=== PATIENT | female | born 1960 | race Caucasian/White ===

== ENCOUNTER 2016-05-11 14:26 | Emergency (ER) | payer MEDICAID, OTHER ==
[2016-05-11 14:37] VITALS: TEMP 98.8
--- NOTE | 2016-05-11 14:43 | UCPHY ---
H & P Patient Type: New Chief Complaint Nursing Narrative: cough, congestion, body aches and shortness of breath for 4 days, felt feverish. denies documented fevers. HPI/ROS: HPI CHIEF COMPLAINT: Cough, congestion, shortness of breath, hypertension HISTORY OF PRESENT ILLNESS: This patient very pleasant 55-year-old female significant past medical history for newly diagnosed hypertension in December she takes lisinopril 20 mg daily however she has not taken her lisinopril in 3 days. She presents to urgent care with 4-5 days of worsening shortness of breath cough, with productive sputum she describes sputum is dark brown, no blood. States she does feel short of breath has wheezing, worsening shortness of breath and cough. Chills, muscle aches, joint pain. Nausea. She thinks she is dehydrated. She denies chest pain. Currently upon arrival here in emergency room is noted that she is hypertensive. She tells me she takes lisinopril 20 mg daily but has not done so in the past 3 days. 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 She also tells me that she has had a newly diagnosed hep C. 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 Past Medical History: Hypertension as of December, hep C Past Surgical History: Denies recent surgical history Social History: denies daily use of drugs alcohol tobacco products Family History: Noncontributory ROS REVIEW OF SYSTEMS: A comprehensive 10 point review of systems is otherwise negative aside from elements mentioned in the history of present illness. Exam Constitutional appears nontoxic triage nursing summary reviewed, vital signs reviewed, awake/alert. (Vital signs HTN) Eyes normal conjunctivae and sclera, EOMI, PERRLA. HENT normal inspection, atraumatic, moist mucus membranes, no epistaxis, neck supple/ no meningismus, no raccoon eyes. Respiratory faint wheezing bilaterally, decreased breath sounds bilaterally, bronchitic sounding cough Cardiovascular rate normal, regular rhythm, no murmur, no edema, distal pulses normal. Gastrointestinal soft, non-tender, no rebound, no guarding, normal bowel sounds, no distension, no pulsatile mass. Genitourinary no CVA tenderness. Musculoskeletal no midline vertebral tenderness, full range of motion, no calf swelling, no tenderness of extremities, no meningismus, good pulses, neurovascularly intact. Skin pink, warm, & dry, no rash, skin atraumatic. Neurologic awake, alert and oriented x 3, AAOx3, moves all 4 extremities equally, motor intact, sensory intact, CN II-XII intact, normal cerebellar, normal vision, normal speech. Psychiatric normal mood/affect. Heme/Lymph/Immune no lymphadenopathy. Differential Diagnosis: Includes but is not limited to in a particular order upper respiratory tract solnao, viral pneumonia, bacterial pneumonia, bronchitis, ACS, CHF, pulmonary embolism Medical Decision Making: Plan for this patient IV establishment full engine monitor due to significant hypertension patient had an EKG, troponin, patient be given a DuoNeb breathing treatment check for influenza. IV hydration. P.o. lisinopril 20 mg given she has not taken in 3 days. Re-evaluation: EKG interpretation by me on record in [employer] system. Impression time of EKG 1456, this is sinus rhythm rate of 71 no acute ischemic changes. Q-waves seen in V1 V2 V3, was not acute ischemic changes. No old EKG to compare this to. 1618: ED x-ray: Chest two view this shows right upper lobe pneumonia. Image interpreted by myself. 1619; re-evaluation at this time this patient is resting comfortably no acute distress. No hypoxia. No tachycardia. No fever. White cell count is normal. Blood cultures been pulled, lactic acid less than 2. Patient received IV Rocephin here in emergency room IV azithromycin. 2nd L IV fluid bolus, 1 mg IV Ativan for anxiety. 1709: Re-evaluation at this time patient is resting comfortably no acute distress. No hypoxia no fever. Normal leukocytosis, lactic acid not elevated, blood pressure greatly improved with anxiety medicine and rest. She received fluids here IV antibiotics Rocephin and azithromycin. Patient be discharged with Levaquin. Blood cultures have been pulled. Prescription given for Levaquin, guaifenesin, prednisone, albuterol inhaler. She understands drink lots of fluids stay well-hydrated return to the urgent care or emergency room if she develops worsening symptoms she is comfortable this plan and plan for discharge. It Is noted discharge no hypoxia no fever, feels much better. Source: Patient - Medical/Surgical History Other PMH: htn, appy, tonsilectomy, hep C - Family History Significant Family History: No pertinent family hx - Social History Smoking Status: Former smoker Constitutional: Initial Vital Signs Temperature (C) 37.1 C 04/02/17 14:34 Heart Rate 85 05/11/16 14:34 Respiratory Rate 20 05/11/16 14:34 Blood Pressure 219/130 H 05/11/16 14:34 O2 Sat (%) 94 05/11/16 14:34 O2 Delivery Mode Room Air Allergies/Adverse Reactions: Penicillins Allergy (Verified 05/11/16 14:33) Home Medications: Medication Instructions Recorded Albuterol [Proventil Inhaler HFA 1 - 2 puffs IH Q4H #1 mdi 05/11/16 (*)] Guaifenesin [Guaifenesin ER] 600 mg PO BID #14 tab.er.12h 05/11/16 Lisinopril 05/11/16 levOFLOXACIN [Levaquin] 500 mg PO DAILY #7 tablet 05/11/16 levOFLOXACIN [levAQUIN (*)] 500 mg PO BID #14 tab 05/11/16 predniSONE 60 mg PO DAILY #15 tab 05/11/16 traZODone 05/11/16 Medical Decision Making - Data Points Laboratory Results: Laboratory Results 05/11/16 14:50 05/11/16 14:50 05/11/16 05/11/16 05/11/16 14:50 14:50 14:50 WBC 5.38 10^3/uL 10^3/uL (3.80-9.50) RBC 4.75 10^6/uL 10^6/uL (4.18-5.33) Hgb 16.0 g/dL g/dL (12.6-16.3) Hct 45.8 % % (38.0-47.0) MCV 96.4 fL fL (81.5-99.8) MCH 33.7 pg pg (27.9-34.1) MCHC 34.9 g/dL g/dL (32.4-36.7) RDW 12.5 % % (11.5-15.2) Plt Count 151 10^3/uL 10^3/uL (150-400) MPV 10.3 fL fL (8.7-11.7) Neut % (Auto) 38.3 % L % (39.3-74.2) Lymph % (Auto) 42.0 % % (15.0-45.0) Graves % (Auto) 12.5 % % (4.5-13.0) Eos % (Auto) 6.3 % % (0.6-7.6) Baso % (Auto) 0.7 % % (0.3-1.7) Nucleat RBC Rel Count 0.0 % % (0.0-0.2) Absolute Neuts (auto) 2.06 10^3/uL 10^3/uL (1.70-6.50) Absolute Lymphs (auto) 2.26 10^3/uL 10^3/uL (1.00-3.00) Absolute Monos (auto) 0.67 10^3/uL 10^3/uL (0.30-0.80) Absolute Eos (auto) 0.34 10^3/uL 10^3/uL (0.03-0.40) Absolute Basos (auto) 0.04 10^3/uL 10^3/uL (0.02-0.10) Absolute Nucleated RBC 0.00 10^3/uL 10^3/uL (0-0.01) Immature Gran % 0.2 % % (0.0-1.1) Immature Gran # 0.01 10^3/uL 10^3/uL (0.00-0.10) PT 13.4 SEC SEC (12.0-15.0) INR 1.05 (0.83-1.16) APTT 27.4 SEC SEC (23.0-38.0) D-Dimer 0.40 ug/mLFEU ug/mLFEU (0.00-0.50) VBG Lactic Acid Sodium 142 mEq/L mEq/L (134-144) Potassium 3.6 mEq/L mEq/L (3.5-5.2) Chloride 105 mEq/L mEq/L (97-110) Carbon Dioxide 25 mEq/l mEq/l (22-31) Anion Gap 12 mEq/L mEq/L (8-16) BUN 14 mg/dL mg/dL (7-23) Creatinine 0.7 mg/dL mg/dL (0.6-1.0) Estimated GFR > 60 Glucose 88 mg/dL mg/dL (70-100) Calcium 8.3 mg/dL L mg/dL (8.5-10.4) Total Bilirubin 0.5 mg/dL mg/dL (0.1-1.4) Conjugated Bilirubin 0.3 mg/dL mg/dL (0.0-0.5) Unconjugated Bilirubin 0.2 mg/dL mg/dL (0.0-1.1) AST 59 IU/L H IU/L (14-46) ALT 106 IU/L H IU/L (9-52) Alkaline Phosphatase 70 IU/L IU/L (38-126) Troponin I < 0.012 ng/mL ng/mL (0-0.034) NT-Pro-B Natriuret Pep 64 pg/mL pg/mL (0-125) Total Protein 7.3 g/dL g/dL (6.3-8.2) Albumin 3.6 g/dL g/dL (3.5-5.0) Influenza Typ A,B (DFA) 05/11/16 05/11/16 14:50 14:47 WBC RBC Hgb Hct MCV MCH MCHC RDW Plt Count MPV Neut % (Auto) Lymph % (Auto) Graves % (Auto) Eos % (Auto) Baso % (Auto) Nucleat RBC Rel Count Absolute Neuts (auto) Absolute Lymphs (auto) Absolute Monos (auto) Absolute Eos (auto) Absolute Basos (auto) Absolute Nucleated RBC Immature Gran % Immature Gran # PT INR APTT D-Dimer VBG Lactic Acid 0.8 mmol/L mmol/L (0.7-2.1) Sodium Potassium Chloride Carbon Dioxide Anion Gap BUN Creatinine Estimated GFR Glucose Calcium Total Bilirubin Conjugated Bilirubin Unconjugated Bilirubin AST ALT Alkaline Phosphatase Troponin I NT-Pro-B Natriuret Pep Total Protein Albumin Influenza Typ A,B (DFA) NEGATIVE FOR FLU (NEGATIVE) Medications Given: Discontinued Medications Albuterol/Ipratropium (Duoneb) 3 ml IH EDNOW ONE Stop: 05/11/16 14:50 Last Admin: 05/11/16 15:11 Dose: Not Given Albuterol/Ipratropium (Duoneb) 3 ml IH EDNOW ONE Stop: 05/11/16 14:51 Last Admin: 05/11/16 15:03 Dose: 3 ml Albuterol/Ipratropium (Duoneb) 3 ml IH EDNOW ONE Stop: 05/11/16 15:54 Last Admin: 05/11/16 15:56 Dose: 3 ml Sodium Chloride (Ns) 1,000 mls @ 0 mls/hr IV ONCE ONE PRN Reason: Wide Open Stop: 05/11/16 14:50 Last Admin: 05/11/16 15:04 Dose: 1,000 mls Sodium Chloride (Ns) 1,000 mls @ 0 mls/hr IV ONCE ONE PRN Reason: Wide Open Stop: 05/11/16 16:12 Last Admin: 05/11/16 16:32 Dose: 1,000 mls Lisinopril (Zestril) 20 mg PO EDNOW ONE Stop: 05/11/16 14:50 Last Admin: 05/11/16 15:04 Dose: 20 mg Lorazepam (Ativan Injection) 1 mg IVP EDNOW ONE Stop: 05/11/16 16:19 Last Admin: 05/11/16 16:44 Dose: 1 mg Departure - Departure Disposition: Home, Routine, Self-Care Clinical Impression: Anxiety Pneumonia Qualifiers: Pneumonia type: due to unspecified organism Laterality: right Lung location: upper lobe of lung Qualified Code(s): J18.1 - Lobar pneumonia, unspecified organism Condition: Good Instructions: Pneumonia (ED) Additional Instructions: 1. Make sure to drink lots of fluids stay well-hydrated 2. return to the urgent care or emergency room if develops worsening symptoms includes severe shortness of breath, high fever, vomiting. Or you do not feel well. 3. Take antibiotic as prescribed. Referrals: Sara Mays MD [Primary Care Provider] - As per Instructions Prescriptions: Albuterol [Proventil Inhaler HFA (*)] 1 - 2 puffs IH Q4H #1 mdi Guaifenesin [Guaifenesin ER] 600 mg PO BID #14 tab.er.12h levOFLOXACIN [Levaquin] 500 mg PO DAILY #7 tablet levOFLOXACIN [levAQUIN (*)] 500 mg PO BID #14 tab predniSONE 60 mg PO DAILY #15 tab - PQRS PQRS Measurement: n/a
[2016-05-11] MEDS ORDERED: IPRATROPIUM/ALBUTEROL 3 ML DEYVIAL IH ONE ×3 (14:49→15:53)
[2016-05-11] MEDS ORDERED: NS 1,000 ML IV ONE ×3 (14:49→16:12)
[2016-05-11] MEDS ORDERED: LISINOPRIL 20 MG TAB PO ONE (14:49)
--- NOTE | 2016-05-11 14:58 | CPEKG ---
Heart Rate: 71 RR Interval: 845 P-R Interval: 176 QRSD Interval: 86 QT Interval: 400 QTC Interval: 435 P [place]: -16 QRS [place]: 23 T Wave [place]: 23 EKG Severity - ABNORMAL ECG - EKG Impression: SINUS RHYTHM EKG Impression: CONSIDER ANTEROSEPTAL INFARCT Electronically Signed By: Ranjeet Peterson 13-May-2016 09:04:31
[2016-05-11 15:12] LABS: % IMMATURE GRANULYOCYTES 0.2 % (0.0-1.1); ABSOLUTE IMMATURE GRANULOCYTES 0.01 10^3/uL (0.00-0.10); ADD DIFF? NO; ADD MORPH? NO; ADD SCAN? NO; ATYPICAL LYMPHOCYTE FLAG 40 (0-99); FRAGMENT RBC FLAG 0 (0-99); HEMATOCRIT 45.8 % (38.0-47.0); LEFT SHIFT FLG 0 (0-99); LIPEMIA HEMOLYSIS FLAG 90 (0-99); MEAN CELL HEMOGLOBIN 33.7 pg (27.9-34.1); MEAN CELL HEMOGLOBIN CONCENTR. 34.9 g/dL (32.4-36.7); MEAN CELL VOLUME 96.4 fL (81.5-99.8); MEAN PLATELET VOLUME 10.3 fL (8.7-11.7); PLATELET CLUMPS FLAG 0 (0-99); PLATELET COUNT 151 10^3/uL (150-400); RED BLOOD CELL COUNT 4.75 10^6/uL (4.18-5.33); RED CELL DISTRIBUTION WIDTH 12.5 % (11.5-15.2)
[2016-05-11 15:22] LABS: APTT 27.4 SEC (23.0-38.0); INR 1.05 (0.83-1.16); PROTIME(PATIENT) 13.4 SEC (12.0-15.0)
[2016-05-11 15:24] LABS: ALANINE AMINOTRANSFERASE 106 IU/L (9-52); ALBUMIN 3.6 g/dL (3.5-5.0); ALKALINE PHOSPHATASE 70 IU/L (38-126); ANION GAP 12 mEq/L (8-16); ASPARTATE AMINOTRANSFERASE 59 IU/L (14-46); BILIRUBIN,TOTAL 0.5 mg/dL (0.1-1.4); BILIRUBIN-CONJUGATED 0.3 mg/dL (0.0-0.5); BILIRUBIN-UNCONJUGATED 0.2 mg/dL (0.0-1.1); CALCIUM 8.3 mg/dL (8.5-10.4); CARBON DIOXIDE 25 mEq/l (22-31); CHLORIDE 105 mEq/L (97-110); CREATININE 0.7 mg/dL (0.6-1.0); GLOMERULAR FILTRATION RATE > 60; GLUCOSE 88 mg/dL (70-100); POTASSIUM 3.6 mEq/L (3.5-5.2); SODIUM 142 mEq/L (134-144); TOTAL PROTEIN 7.3 g/dL (6.3-8.2)
[2016-05-11 15:55] LABS: TROPONIN I < 0.012 ng/mL (0-0.034)
[2016-05-11 16:01] VITALS: RESP 18
[2016-05-11] MEDS ORDERED: AZITHROMYCIN IV 500 MG in D5W 250 ML IV ONE (16:11)
[2016-05-11] MEDS ORDERED: LORazepam 2 MG/ML INJ IVP ONE (16:18)
[2016-05-11] MEDS ORDERED: cefTRIAXone 1 GM VIAL ONE (16:19)
[2016-05-11 17:20] VITALS: BP 151/87; PULSE 84; O2SAT 94
== END 2016-05-11 18:13 | disposition home or self-care (01) ==
LOC: CED 14:26
DX: J18.1 Lobar pneumonia, unspecified organism (principal); F41.9 Anxiety disorder, unspecified; I10 Essential (primary) hypertension; B19.20 Unspecified viral hepatitis C without hepatic coma; Z87.891 Personal history of nicotine dependence
CPT/HCPCS: 71020-PO; 80048-PO; 80076-PO; 83605-PO; 83880-PO; 84484-PO; 85025-PO; 85378-PO; 85610-PO; 85730-PO; 87400-PO; 93010-PO; 96361-PO; 96365-PO; 96367-PO; 96375-PO; 99205-PO; G0463-PO; J0456; J0696; J2060